=== PATIENT | female | born 1940 | race Caucasian/White ===

== ENCOUNTER 2020-05-22 15:25 | Inpatient (IN) | payer MEDICARE ==
[~2020-05-22] VITALS: Ht 167.6 cm; Wt 110.6 kg
[~2020-05-22 15:25] MED LIST: ALBU3IS INH; ASPI325 PO; Adult Low Dose81 MG PO; Aspir 8181 MG PO; BISA10S PR; CEPH500 PO; DIGO.25 PO; DIGOX250 MCG PO; Elemental Calc600 MG PO; FERR325 PO; FURO40 PO; Ferrous Sulfat325 MG PO; GABA300 PO; HYDACE10B PO; IRON SULFATE; LAVAP17G PO; LOSA50 PO; METF500 PO; METF850 PO; METO25 PO; METO50 PO; OXYACE7.5T PO; POTA10T PO; SENN187 PO
[2020-05-22] MEDS ORDERED: CALCIUM PO (15:54)
[2020-05-22] MEDS ORDERED: AMLO10 PO (15:56)
[2020-05-22 16:06] LABS: Base Excess Venous -2.6 mmol/L; Bicarbonate Venous 21.2 mmol/L (24.0-30.0); PCO2 Venous 58.8 mmHg (38-42); PO2 Venous 60.7 mmHg (38-42); pH Blood Venous 7.24 (7.34-7.37)
[2020-05-22 16:17] LABS: BASOPHILS ABSOLUTE AUTO 0.03 K/mm3 (0.00-0.23); BASOPHILS PERCENT AUTO 0 % (0-2); EOSINOPHILS ABSOLUTE AUTO 0.07 K/mm3 (0.00-0.68); EOSINOPHILS PERCENT AUTO 1 % (0-6); Hematocrit 47.7 % (33.0-51.0); IMMATURE GRAN ABSOLUTE AUTO 0.05 K/mm3 (0.00-0.10); IMMATURE GRAN PERCENT AUTO 1 % (0-1); LYMPHOCYTES ABSOLUTE AUTO 0.84 K/mm3 (0.84-5.20); LYMPHOCYTES PERCENT AUTO 9 % (21-46); MONOCYTES ABSOLUTE AUTO 0.93 K/mm3 (0.16-1.47); MONOCYTES PERCENT AUTO 9 % (4-13); Mean Corpuscular HGB Conc 29.4 g/dL (31.5-36.5); Mean Corpuscular Volume 109 fL (80-100); Mean Platelet Volume 11.5 fL (9.1-12.4); NEUTROPHILS ABSOLUTE AUTO 7.94 K/mm3 (1.96-9.15); NEUTROPHILS PERCENT AUTO 81 % (41-73); Platelet Count 195 K/mm3 (150-400); RDW Coefficient Variation 17.4 % (11.7-14.2); RDW Standard Deviation 71.1 fL (35.1-46.3); Red Blood Cell Count 4.38 M/mm3 (3.80-5.20); White Blood Cell Count 9.86 K/mm3 (4.00-11.30)
[2020-05-22 16:46] LABS: Troponin I <0.015 ng/mL (0.000-0.040)
[2020-05-22 16:51] LABS: Alanine Aminotransfer (ALT/SGP 29 U/L (12-78); Albumin, Blood 3.8 g/dL (3.4-5.0); Alk Phos 104 U/L (50-136); Anion Gap 2 mmol/L (6-16); Aspartate Aminotrans (AST/SGOT 25 U/L (12-37); Bilirubin, Total 0.6 mg/dL (0.1-1.0); Blood Urea Nitrogen 60 mg/dL (8-24); Bun/Creatinine Ratio 32.4 (12.0-20.0); CO2, Blood 26 mmol/L (21-32); Chloride, Blood 113 mmol/L (98-108); Creatinine, Blood 1.85 mg/dL (0.40-1.00); Globulin, Blood 3.8 g/dL (2.2-4.0); Glomerular Filtration Rate 28 (60-); Glucose, Blood 97 mg/dL (70-99); Potassium, Blood 6.3 mmol/L (3.5-5.5); Sodium, Blood 141 mmol/L (136-145); Total Protein, Blood 7.6 g/dL (6.4-8.2)
[2020-05-22 16:53] LABS: Influenza A, PCR Negative (NEGATIVE); Influenza B, PCR Negative (NEGATIVE); Resp Syncytial Virus, PCR Negative (NEGATIVE); SARS-Cov-2 (COVID-19) PCR, MMC Negative (NEGATIVE)
[2020-05-22 17:52] LABS: Source, Urine Catheter
[2020-05-22 18:04] LABS: Appearance, Urine Hazy (Clear); Bilirubin, Urine Neg (Neg); Blood, Urine Neg (Neg); Color, Urine Yellow (P-Yellow); Glucose Qualitative, Urine Neg (Neg); Ketones, Urine Neg (Neg); Leukocyte Esterase, Urine Neg (Neg); Nitrite, Urine Neg (Neg); Protein, Urine Neg (Neg); Urobilinogen, Urine NORM (Normal)
[2020-05-22 18:23] LABS: Amorphous Mod (0-Heavy); Bacteria Few /hpf; Red Blood Cells, Urine 0-2 /hpf (0-2); Squamous Epithelial Cells Few /hpf (Few); White Blood Cells, Urine 0-2 /hpf (0-5)
[2020-05-22 22:20] LABS: Potassium, Blood 5.9 mmol/L (3.5-5.5); Troponin I 0.023 ng/mL (0.000-0.040)
[2020-05-23 04:05] LABS: BASOPHILS ABSOLUTE AUTO 0.03 K/mm3 (0.00-0.23); BASOPHILS PERCENT AUTO 0 % (0-2); EOSINOPHILS ABSOLUTE AUTO 0.12 K/mm3 (0.00-0.68); EOSINOPHILS PERCENT AUTO 2 % (0-6); Hematocrit 44.9 % (33.0-51.0); Hemoglobin 12.9 g/dL (11.5-16.0); IMMATURE GRAN ABSOLUTE AUTO 0.03 K/mm3 (0.00-0.10); IMMATURE GRAN PERCENT AUTO 0 % (0-1); LYMPHOCYTES ABSOLUTE AUTO 1.24 K/mm3 (0.84-5.20); LYMPHOCYTES PERCENT AUTO 17 % (21-46); MONOCYTES ABSOLUTE AUTO 0.88 K/mm3 (0.16-1.47); MONOCYTES PERCENT AUTO 12 % (4-13); Mean Corpuscular HGB 31.8 pg (26.0-34.0); Mean Corpuscular HGB Conc 28.7 g/dL (31.5-36.5); Mean Corpuscular Volume 111 fL (80-100); Mean Platelet Volume 11.4 fL (9.1-12.4); NEUTROPHILS ABSOLUTE AUTO 5.05 K/mm3 (1.96-9.15); NEUTROPHILS PERCENT AUTO 69 % (41-73); Platelet Count 163 K/mm3 (150-400); RDW Coefficient Variation 17.2 % (11.7-14.2); RDW Standard Deviation 71.5 fL (35.1-46.3); Red Blood Cell Count 4.06 M/mm3 (3.80-5.20); White Blood Cell Count 7.35 K/mm3 (4.00-11.30)
[2020-05-23 04:25] LABS: Bun/Creatinine Ratio 34.9 (12.0-20.0); Calcium, Blood 8.7 mg/dL (8.5-10.1); Creatinine, Blood 1.69 mg/dL (0.40-1.00); Potassium, Blood 5.7 mmol/L (3.5-5.5); Troponin I 0.017 ng/mL (0.000-0.040)
--- NOTE | 2020-05-23 05:59 | NUR ---
SHIFT SUMMARY PT RESTED THROUGH REST OF THE NIGHT AFTER ADMIT. ALERT AND ORIENTED - ABLE TO MAKE NEEDS KNOWN. WEARING 7LNC WHEN AWAKE, AND 7L BLEED IN WHEN WEARING BIPAP. SATS MAINTAIN GREATER THAN 90%. TELE READING NSR. IS SBA WITH WALKER TO BATHROOM. HAS ALEXANDER IN PLACE TO ASSIST WITH SKIN HEALING IN LEO AREA. NO C/O PAIN. VSS. CALL LIGHT WITHIN REACH, BED IN LOWEST POSITION. WILL CONTINUE TO MONITOR.
--- NOTE | 2020-05-23 10:20 | NUR ---
CORRECTIONAL AGENCY DIRECTOR WITH PT FOR ECHO, WILL MEDICATE WITH MORNING MEDS WHEN ECHO COMPLETE.
--- NOTE | 2020-05-23 17:38 | NUR ---
SHIFT SUMMARY; ASSUMED CARE AT 0700, A/A/OX4 THROUGHOUT SHIFT. 6L O2 VIA NC, DECREASED SATS TO 88% WITH EXERTION OR EXCESIVE TALKING. ALEXANDER IN PLACE DRAINING CLEAR YELLOW URINE. REPOSITIONS SELF THROUGHT SHIFT WITH ASSISTANCE. TRANSFERRED TO [facility] WITH WALKER AND STANDBY ASSIST. BLE EDEMA, PT STATES IS MUCH WORSE THAN NORMAL. VSS, MEDICATED PER ORDERS THROUGHOUT SHIFT. WILL CONTINUE TO MONITOR AND TREAT UNTIL CHANGE OF SHIFT.
--- NOTE | 2020-05-24 02:01 | NUR ---
PT HAS HAD 2 OCCASIONS WHERE HER OXYGEN WAS MISPLACED ON HER FACE, AND HER O2 SATS DROPPED TO LOW TO MID 80'S. PT SATS RETURNED TO LOW 90'S WITHIN 30 SECONDS TO 1 MINUTE ONCE OXYGEN PLACED BACK IN HER NARES. PT IS CURRENTLY SLEEPING, O2 SATS 91%. CALL LIGHT WITHIN REACH.
[2020-05-24 04:27] LABS: Hemoglobin 12.5 g/dL (11.5-16.0); Mean Corpuscular HGB 32.1 pg (26.0-34.0); Mean Corpuscular HGB Conc 29.1 g/dL (31.5-36.5); Mean Corpuscular Volume 111 fL (80-100); Platelet Count 158 K/mm3 (150-400); RDW Coefficient Variation 17.2 % (11.7-14.2); RDW Standard Deviation 70.6 fL (35.1-46.3); Red Blood Cell Count 3.89 M/mm3 (3.80-5.20); White Blood Cell Count 8.41 K/mm3 (4.00-11.30)
[2020-05-24 04:47] LABS: Bun/Creatinine Ratio 35.5 (12.0-20.0); Calcium, Blood 8.8 mg/dL (8.5-10.1); Creatinine, Blood 1.72 mg/dL (0.40-1.00); Potassium, Blood 5.5 mmol/L (3.5-5.5)
--- NOTE | 2020-05-24 04:56 | NUR ---
PT IS SLEEPING WITH BIPAP IN PLACE, RESPIRATORY EFFORT IMPROVED WITH BIPAP IN PLACE - NO ACCESSORY MUSCLE USE. PT IS CURRENTLY SLEEPING. CALL LIGHT WITHIN REACH.
--- NOTE | 2020-05-24 05:20 | NUR ---
PT REMOVED HER BIPAP, REQUESTING O2 BE PLACED BACK ON. HIGH FLOW O2 8L PLACED BACK ON - SATS 90%.
--- NOTE | 2020-05-24 05:54 | NUR ---
NO ACUTE EVENTS THROUGHOUT THE NIGHT. PT SLEPT FOR APPX 4-5 HOURS TONIGHT. PT TOLERATED BIPAP FOR APPX 3 HOURS TONIGHT. PT CURRENTLY ON 8L HIGH FLOW OXYGEN - CONTINUOUS BIOX ON, SATS 91%. CALL LIGHT WITHIN REACH. URINE OUTPUT WNL WITH ALEXANDER. PT TOLERATED PO FLUIDS WITHOUT DIFFICULTY.
--- NOTE | 2020-05-24 17:41 | NUR ---
SUMMARY PT EATING DINNER AT THIS TIME. HAS BEEN TACHYPNIC AND USING ACCESSORY MUSCLES. PLACED ON BIPAP THIS AM. WHEN PT AWOKE, PT REMOVED BIPAP. ENTERED ROOM TO FIND SATS IN HIGH 70S. PT WAS ALERT. PLACED NC AT 8L HIGH FLOW ON AND SATS RETURNED TO LOW 90S. PT HAS 3+ PITTING EDEMA TO BLE; ELEVATED ON PILLOWS. REC'D BUMEX PER ORDERS. GOOD URINE OUTPUT IN ALEXANDER CATH. PT PASSED FLATUS BUT NO BM THIS SHIFT. SON IN TO VISIT DURING VISITING HOURS. CALL LIGHT IN REACH.
--- NOTE | 2020-05-24 18:07 | NUR ---
PT DECLINED BIPAP AT THIS TIME EATING FRUIT.
--- NOTE | 2020-05-24 19:20 | NUR ---
ASSUMED CARE RECEIVED REPORT BEDSIDE FROM AMY ANTOINE; PT A&O X 3-4; VSS; O2 SATS >93 ON 8L HIGH FLOW; PT TALKING ON PHONE TO FAMILY, SOB NOTED, USING ACCESSORY MUSCLES; CALL LIGHT IN REACH; BED IN LOWEST POSITION.
[2020-05-25 04:19] LABS: Calcium, Blood 8.8 mg/dL (8.5-10.1); Creatinine, Blood 1.54 mg/dL (0.40-1.00); Potassium, Blood 5.2 mmol/L (3.5-5.5)
--- NOTE | 2020-05-25 05:36 | NUR ---
SHIFT SUMMARY PT A&O X 3; PT C/O SOB AT TIMES; VSS; O2 SATS >92 ON 8L HIGH FLOW; BIPAP PLACED LATE IN SHIFT; RT AT BEDSIDE TO TITRATE; ALEXANDER PATENT & DRAINING CLOUDY MYRA URINE; CALL LIGHT IN REACH; BED IN LOWEST POSITION; WILL CONTINUE TO MONITOR CLOSELY UNTIL HAND OFF TO DAY SHIFT RN.
--- NOTE | 2020-05-25 18:42 | NUR ---
SHIFT SUMMARY PT SLEEPING IN ROOM COMFORTABLY AT THIS TIME. NO ACUTE CHANGES IN STATUS T/O SHIFT. SATS 89-92% ON 9L NC. PT LS REMAIN COARSE. IV DIURECTIS INCREASED DURING SHIFT. ALEXANDER CATH DRAINING TO GRAVITY, MYRA IN COLOR AND CLOUDY. PT DENIED ANY CP. NYSTATIN ORDERED FOR YEAST IN FOLDS. PT REPORTS FEELS BETTER. DENIED OTHER NEEDS. CALL LIGHT IN REACH.
[2020-05-26 04:01] LABS: Hematocrit 45.5 % (33.0-51.0); Mean Corpuscular HGB 31.6 pg (26.0-34.0); Mean Corpuscular HGB Conc 28.6 g/dL (31.5-36.5); Mean Corpuscular Volume 111 fL (80-100); Mean Platelet Volume 11.3 fL (9.1-12.4); Platelet Count 131 K/mm3 (150-400); RDW Coefficient Variation 16.5 % (11.7-14.2); RDW Standard Deviation 68.2 fL (35.1-46.3); Red Blood Cell Count 4.11 M/mm3 (3.80-5.20); White Blood Cell Count 8.85 K/mm3 (4.00-11.30)
[2020-05-26 04:18] LABS: Bun/Creatinine Ratio 38.9 (12.0-20.0); Creatinine, Blood 1.44 mg/dL (0.40-1.00); Potassium, Blood 5.3 mmol/L (3.5-5.5)
--- NOTE | 2020-05-26 06:22 | NUR ---
SHIFT SUMMARY PATIENT PLEASENT BUT FORGETFUL THROUGHOUT THE NIGHT. PATIENT NEW SHE WAS AT THE HOSPITAL BUT KEPT FORGETTING WHY SHE WAS HERE. PATIENT WILL FREQUENTLY REMOVE OXYGEN AND NOT BE ABLE TO FIND IT AGAIN TO REPLACE IT. PATIENT'S OS SATURATION WILL DROP INTO THE LOW 80'S WHEN THIS HAPPENS. PATIENT ALWAYS RECOVERS WHEN OXYGEN IS REPLACED. PATIENT GETS ANXIOUS WHEN SHE GETS SHORT OF BREATH AFTER REMOVING HER OXYGEN. PATIENT HAS BEEN MOSTLY ON 11-13L OF OXYGEN THROUGHOUT THE NIGHT BUT IS CURRENTLY ON 9L AND IS TOLERATING IT WELL AT THIS TIME. PATIENT WORE HER BIPAP FOR SEVERAL HOURS LAST NIGHT WHILE ASLEEP BUT SHE DOES NOT TOLERATE IT WELL, PATIENT FREQUENTLY TRIES TO REMOVE HER MASK WHEN BIPAP IS ON STATING, "I WANT IT OFF." PATIENT CURRENTLY APPEARS TO BE ASLEEP AND IS AT 92% ON 9L. WILL CONTINUE TO MONITOR PATIENT AND REPORT TO ONCOMING RN.
--- NOTE | 2020-05-26 12:37 | NUR ---
ASSUMED CARE OF PT THIS AM AFTER RECEIVING REPORT FROM AMY CAMILO. PT ALERT AND ORIENTED X3, RECEIVING HUMIDIFIED OXYGEN VIA HI-SINDY AT 10 L/MIN WITH O2 SATS 88-91%. APPROXIMATELY 1220, PT BREATHING APPEARS MORE LABORED, O2 SATS IN MID-80'S. PT PLACED ON NONREBREATHER, TOLERATED WELL FOR A SHORT PERIORD OF TIME, FOUND WITH HER MASK REMOVED AND O2 SATS AT 78%. BUDDY, RT, ASSISTS WITH PLACING PT ON BIPAP. PT TOLERATLING WELL AT THIS TIME. O2 SATS AT 88-89%.
--- NOTE | 2020-05-26 13:17 | NUR ---
Spoke with Dr Peterson and Elmer Warren prior to visiting with Pt. Dr Peterson reports Pt and family may benefit from discussion regarding goals of care including consideration of hospice. Pt resting in bed upon arrival. RT and bedside RN Andres at bedside. Non rebreather placed with 15 L O2. Pt using accessory muscles. Engaged in therapeutic conversation regarding goals of care. Educated on disease process including trajectory of disease. Discussed hospice as an option. Difficult to assess Pt's understanding and ability to process information due to Pt's significant SOB. Pt tends to focus on frustration of losing her independence and states "I don't want my children to have to move in with me". Pt does not respond further and fidgets with her lunch. Ended visit to allow Pt time to process information. Received verbal permission from Pt to call daughter and discuss conversation that took place. Called and spoke with Pt's daughter Sonia. Provided update and engaged in therapeutic discussion regarding hospice as an option. Gentle education on disease process and the need for caregiver support. Sonia reports plan to visit Pt at 1500 and is agreeable to discuss further when she arrives. Sonia reports no other concerns at this time and expresses appreciation of call. Palliative Care will remain available.
--- NOTE | 2020-05-26 14:01 | NUR ---
PT CONTINUES ON BIPAP, TOLERATING WELL WITH O2 SATS AT 95%. PT RESPIRATIONS APPEAR LESS LABORED. PT RESTING QUIETLY WITH EYES CLOSED, NADN.
--- NOTE | 2020-05-26 15:34 | NUR ---
Received call from Bedside AMY Campos reporting Pt's daughter has arrived. Pt resting in bed upon arrival. Pt's on 10 L O2 via NC. Pt tends to breath through her mouth and NC placed in mouth. Pt constantly moving NC out of her mouth with saturations dropping quickly to 82 to 84%. Engaged in further conversations regarding goals of care. Answered questions and listened to concerns. Educated on hospice philosophy with V/U made by Sonia. Pt appears to struggle with participating on conversation. When assessing Pt's understanding Pt replies "It means I'm going to kick the bucket". Inquired with Pt regarding her thoughts and wishes with Pt appearding to struggle with question and does not respond. Pt appears moderately dyspneic with this RN assisting with appropriate placement of NC throughout the visit. Sonia reports having conversation with other family members and family is in agreement with hospice. Sonia reports wanting Pt to remain at home and avoid hospitalization but will need assistance and support with caregivers. Discussed code status and consideration of completing POLST with Sonia reporting wanting to speak with family further before making a decision. Instructed concerns will be relayed to jatin Warren. Sonia expressess appreciation of visit and reports no other concerns at this time. Spoke with Bedside AYM Campos and discussed case. Discussed consideration of oxygen mask to replace NC for comfort. Spoke with Caremansveta Warren and relayed wishes and concerns. Spoke with Dr Petesron and discussed family wishes. Will place hospice referral. Palliative Care will remain available.
--- NOTE | 2020-05-26 18:49 | NUR ---
SHIFT SUMMARY: PALLIATIVE CARE CONSULT TOOK PLACE TODAY WITH DAUGHTER AT BEDSIDE. AT THIS TIME, WE ARE WAITING FOR PT'S DAUGHTER TO CONSULT WITH SIBLINGS AND COME TO A DECISION RE: POSSIBLE HOSPICE PLACEMENT. PT CONTINUES ON OXYGEN VIA NC AT THIS TIME, RATE OF 10 L/MIN, O2 SATS AT 90%. REPEAT CHEST XRAY COMPLETED THIS AFTERNOON, PENDING RESULTS AT THIS TIME. DIURETIC DOSE WAS INCREASED TODAY, PT TOLERATING WELL THUS FAR. WILL CONTINUE TO MONITOR UNTIL CHANGE OF SHIFT.
[2020-05-27 04:53] LABS: Hematocrit 43.9 % (33.0-51.0); Hemoglobin 12.8 g/dL (11.5-16.0); Mean Corpuscular HGB Conc 29.2 g/dL (31.5-36.5); Mean Corpuscular Volume 110 fL (80-100); Mean Platelet Volume 11.8 fL (9.1-12.4); Platelet Count 120 K/mm3 (150-400); RDW Coefficient Variation 16.4 % (11.7-14.2); RDW Standard Deviation 66.9 fL (35.1-46.3); White Blood Cell Count 8.41 K/mm3 (4.00-11.30)
[2020-05-27 05:04] LABS: Bun/Creatinine Ratio 44.3 (12.0-20.0); Calcium, Blood 9.1 mg/dL (8.5-10.1); Creatinine, Blood 1.4 mg/dL (0.40-1.00); Potassium, Blood 5.3 mmol/L (3.5-5.5)
--- NOTE | 2020-05-27 05:30 | NUR ---
END OF SHIFT SUMMARY PT ALERT OR LETHARGIC DEPENDING ON TIME OF SHIFT. REMAINS IN AFIB WITH STABLE VS. WHEN TOLERATING, PT ON BIPAP 18/9 75% FIO2, PT DOES NOT TOLERATE WELL HOWEVER AND HAS BEEN ON HIGH FLOW NC RANGING FROM 11-13L. SPO2 RANGING FROM 88% - 92%. PT CONTINUES WITH SHALLOW BREATHING AND OCCASIONAL ACCESSORY MUSCLE USE. ALEXANDER REMAINS PATENT AND DRAINING. PT GIVEN COMPLETE BED BATH. HAS BEEN RESTING OFF AND ON. FLAT AFFECT BUT COOPERATIVE. PT PRESENTS SOMBER BUT DOESN'T ELABORATE. WILL CONTINUE TO MONITOR UNTIL SHIFT CHANGE.
--- NOTE | 2020-05-27 16:54 | NUR ---
Received call from Pt's daughter in law Angie. Engaged in therapeutic listening and answered questions. Angie reports her and Pt's son were not aware Pt had significant heart disease. Angie reports just finding out that Pt had not been seeing a PCP in some time. Continued therapeutic listening and discussed goals of care. Angie reports family is in agreement with hospice and plans to visit Pt this weekend. Angie and Pt's son work methods time analyst and live in [place]. Discussed the importance of discussion regarding code status. Continued therapeutic listening. Angie expresses appreciation of conversation and report no other concerns at this time. Pt resting in bed upon arrival. Pt denies pain at this time. Pt states "I'm feeling crudy". Asked to elaborate with Pt refering to her dyspnea. Continued with therapeutic voice and and gentle touch. Called and spoke with Dr Hammond. Dr Hammond reports having conversation with Pt. Pt states she is wanting to get better. Plan is to attempt to improve symptoms. Family would benefit from having further conversations with Pt as needed. Palliative Care will remain available for therapeutic visits.
--- NOTE | 2020-05-27 18:44 | NUR ---
PT SUMMARY: PT REMAINS ON 12L OF O2 VIA HI SINDY NASAL CANNULA ALTERNATING BIPAP AT 70% FIO2 IF TOLERATED. HRR REMAINS AFIB RATE 90'S, BP SYSTOLIC 150'S, AFEBRILE. PT STARTED GETTING AGITATED AFTER LUNCH TIME PT TOLERATED BIPAP AND FELL ASLEEP FOR MORE THAN AN HOUR PT STARTED TAKING BIPAP OFF REDIRECTED TO USE CALL LIGHT TO HELP PT SWITCH IT OFF TO NASAL CANNULA PT WAS NOT ABLE TO CALL TAKES OFF NASAL CANNULA WELL PT DESATS TO LOW 70'S HAS TO USE BIPAP TO RECOVER. PT SOB/ WITH MINIMAL EXERTION ANDHAS TO TAKE DEEP BREATHS WHEN TALKING. CAN TOLERATE EATING DESATS TO 85%. PT STILL CONSIDERING TAKING TREATMENTS UNTIL PT FEEL BETTER, FAMILY IS OKAY FOR PT TO PROCEED TO HOSPICE PROGRAM PER PALLIATIVE CARE NURSE. PER DR TONEY WILL WATCH PT DAY BY DAY FOR NOW ON HOW PT PROGRESS. BUMEX INCREASED TO 4MG BID. PT STILL HAS 2-4+ PITTING EDEMA BUE AND BLE. ORDER RECEIVED FOR SEROQUEL AND HALDOL PRN FOR AGITATION. ONE DOSE GIVEN WITH DINNER. 2 NURSES IN THE ROOM AT THIS TIME ATTEMPTING POWERGLIDE PLACEMENT. WILL REPORT TO ONCOMING SHIFT.
--- NOTE | 2020-05-27 22:46 | NUR ---
ASSUMED CARE OF PATIENT AT APPROXIMATELY 1910 FROM ANA M Benitez RN. PATIENT LETHARGIC AT TIMES; RESPONDS TO VERBAL STIMULUS AT TIMES; BIPAP DEPENDENT; CONFUSED AND PULLING BIPAP OFF A TIMES. PATIENT DENIES PAIN, NUMBNESS, TINGLING, DIZZINESS OR NAUSEA. AFIB ON TELE W/ RATE OF 70-80'S; OXYGEN SATURATION ABOVE 90% ON 12LPM VIA HF NC OR BIPAP FIO2 70%. PG S/L. PATIENT CURRENTLY RESTING IN BED; CALL LIGHT IN REACH; BED IN LOWEST POSISTION; BED ALARM ON; WILL CONTINUE TO MONITOR AND ASSESS UNTIL END OF SHIFT.
[2020-05-28 03:39] LABS: BASOPHILS ABSOLUTE AUTO 0.01 K/mm3 (0.00-0.23); BASOPHILS PERCENT AUTO 0 % (0-2); EOSINOPHILS ABSOLUTE AUTO 0.09 K/mm3 (0.00-0.68); EOSINOPHILS PERCENT AUTO 2 % (0-6); Hematocrit 42.2 % (33.0-51.0); Hemoglobin 12.4 g/dL (11.5-16.0); IMMATURE GRAN ABSOLUTE AUTO 0.03 K/mm3 (0.00-0.10); IMMATURE GRAN PERCENT AUTO 1 % (0-1); LYMPHOCYTES ABSOLUTE AUTO 0.51 K/mm3 (0.84-5.20); LYMPHOCYTES PERCENT AUTO 8 % (21-46); MONOCYTES PERCENT AUTO 12 % (4-13); Mean Corpuscular HGB 31.9 pg (26.0-34.0); Mean Corpuscular HGB Conc 29.4 g/dL (31.5-36.5); Mean Corpuscular Volume 109 fL (80-100); Mean Platelet Volume 11.8 fL (9.1-12.4); NEUTROPHILS ABSOLUTE AUTO 4.74 K/mm3 (1.96-9.15); NEUTROPHILS PERCENT AUTO 78 % (41-73); Platelet Count 108 K/mm3 (150-400); RDW Coefficient Variation 15.8 % (11.7-14.2); RDW Standard Deviation 63.8 fL (35.1-46.3); Red Blood Cell Count 3.89 M/mm3 (3.80-5.20); White Blood Cell Count 6.08 K/mm3 (4.00-11.30)
[2020-05-28 03:52] LABS: Bun/Creatinine Ratio 47.2 (12.0-20.0); Creatinine, Blood 1.44 mg/dL (0.40-1.00); Magnesium, Blood 2.6 mg/dL (1.6-2.4); Potassium, Blood 4.2 mmol/L (3.5-5.5)
--- NOTE | 2020-05-28 05:53 | NUR ---
PATIENT WORE BIPAP FOR MOST OF SHIFT; REMOVED FOR ORAL CARE AND TO DRINK SOME WATER. MENTATION IMPROVED T/O THE SHIFT. PATIENT REMOVED BIPAP ABOUT 0540 AND REPORTS SHE NEEDS A BREAK. 12LPM VIA HIGH FLOW NC PLACED; TOLERATING AT 90-92% O2 SAT. NO OTHER CHANGES TO REPORT. WILL CONTINUE TO MONITOR AND ASSESS UNTIL END OF SHIFT.
--- NOTE | 2020-05-28 10:39 | NUR ---
Pt resting in bed upon arrival. BIPAP just placed. Pt appears mildly anxious. Spoke with AMY Schneider and discussed case. Pt more confused today. Spoke with Dr Hammond and discussed case. Pt has reported to Dr Hammond that she wants to get better. Dr Hammond reports family discussion with Pt regarding goals of care may be beneficial. Will discuss with careteam regarding possibility of allowing a one time short visit for daughter, son, and daughter in law to visit with Pt to discuss further regarding goals of care. Palliative Care will remain available.
--- NOTE | 2020-05-28 10:59 | NUR ---
Late Entry from previous visit. Spoke with Bedside RN Wei and cardiovascular invasive specialist Marcella. Team is agreeable with a one time meeting with Pt, son, daughter, and daughter in law tomorrow to assist with goals of care. Daughter in law Angie will call back with approximate time family can meet tomorrow.
--- NOTE | 2020-05-28 17:33 | NUR ---
PC AMY Daniels received call from Pt's daughter in law. Family will arrive on morning approximately 1030 to have meeting with Pt to discuss goals of care.
--- NOTE | 2020-05-28 18:39 | NUR ---
PT SUMMARY: PT CONFERENCE MEETING SET UP TOMORROW WITH PALLIATIVE CARE NURSE AT 10:30A TO DISCUSS PT'S CONDITION AND CODE STATUS. PT HAS BEEN ON HI-SINDY 13-15L WAS NOT TOLERATING BIPAP KEEPS TAKING IT OFF THEN PT DESATS TO LOW 70% TAKES AWHILE FOR PT TO RECOVER PT STATED SHE COULDNT BREATHE, HAS TO BE REDIRECTED MULTIPLE TIMES TO KEEP MASK ON HELP HER BREATHE, SEROQUEL GIVEN X1 AT DINNER TIME, PT IS NOW RESTING WITH BIPAP ON FIO2 STILL AT 70%. PT DOESN'T SEEM TO UNDERSTAND AND RETAIN INFORMATION ABOUT HER CONDITION, WILL DISCUSS MORE WITH FAMILY TOMORROW. VITALS HRR AFIB 80-100'S, BP SYSTOLIC 130'S, AFEBRILE. ALEXANDER DRAINING VIA GRAVITY HAD ATLEAST 1500MLS URINE OUTPUT FOR THE SHIFT, REPOSITIONED Q2 HRS. WILL REPORT TO ONCOMING SHIFT
--- NOTE | 2020-05-29 07:33 | NUR ---
SHIFT SUMMARY PATIENT PLEASENT AND COOPERATIVE THROUGHOUT THE NIGHT. PATIENT ABLE TO STATE SHE IS AT [facility] BUT UNABLE TO REMEMBER WHY SHE IS HERE. PATIENT REORIENTED NEEDED. PATIENT FORGETFUL AND REMOVES OXYGEN AND BIPAP MASK. PATIENT DOES NOT LIKE TO WEAR THE BIPAP BUT WILL DO IT. PATIENT WORE HER BIPAP UNTIL APPROX 0100. THEN PATIENT HAD A SMALL NOSE BLEED AND BIPAP WAS REMOVED. RESPIRTORY THERAPY NOTIFIED AND STATED IT WAS FINE FOR PATIENT TO BE OFF BIPAP FOR THE TIME BEING. PATIENT PLACED ON 15L VIA HIGH FLOW N/C. PATIENT REMAINED AT 88% OR GREATER ON THE 15L. PATIENT THEN NAPPED ON AND OFF THROUGHOUT THE REST OF THE NIGHT. PATIENT REPORTS SHE JUST DOESN'T FEEL WELL. REPORT GIVEN TO ONCOMING RN.
--- NOTE | 2020-05-29 08:45 | NUR ---
Brief supportive visit this AM. Pt resting in bed upon arrival wearing BIPAP. Assisted Pt with choosing her meals per her request. Pt denies pain at this time. Pt reports feeling difficult to breath with BIPAP. Instructed on BIPAP. Offered therapeutic voice and gentle touch. Plan: Meet with family when they arrive to assist with conversation as needed.
[2020-05-29 09:43] LABS: BASOPHILS ABSOLUTE AUTO 0.02 K/mm3 (0.00-0.23); BASOPHILS PERCENT AUTO 0 % (0-2); EOSINOPHILS ABSOLUTE AUTO 0.13 K/mm3 (0.00-0.68); EOSINOPHILS PERCENT AUTO 2 % (0-6); Hematocrit 39.9 % (33.0-51.0); Hemoglobin 11.9 g/dL (11.5-16.0); IMMATURE GRAN ABSOLUTE AUTO 0.03 K/mm3 (0.00-0.10); IMMATURE GRAN PERCENT AUTO 1 % (0-1); LYMPHOCYTES PERCENT AUTO 8 % (21-46); MONOCYTES ABSOLUTE AUTO 0.63 K/mm3 (0.16-1.47); MONOCYTES PERCENT AUTO 10 % (4-13); Mean Corpuscular HGB 32.1 pg (26.0-34.0); Mean Corpuscular HGB Conc 29.8 g/dL (31.5-36.5); Mean Corpuscular Volume 108 fL (80-100); Mean Platelet Volume 11.7 fL (9.1-12.4); NEUTROPHILS ABSOLUTE AUTO 5.05 K/mm3 (1.96-9.15); NEUTROPHILS PERCENT AUTO 79 % (41-73); Platelet Count 106 K/mm3 (150-400); RDW Coefficient Variation 15.7 % (11.7-14.2); RDW Standard Deviation 62.3 fL (35.1-46.3); Red Blood Cell Count 3.71 M/mm3 (3.80-5.20); White Blood Cell Count 6.36 K/mm3 (4.00-11.30)
[2020-05-29 10:01] LABS: Bun/Creatinine Ratio 54.8 (12.0-20.0); Calcium, Blood 8.9 mg/dL (8.5-10.1); Creatinine, Blood 1.26 mg/dL (0.40-1.00); Potassium, Blood 3.3 mmol/L (3.5-5.5)
--- NOTE | 2020-05-29 11:52 | NUR ---
Pt visit with family at bedside. Son Kishor, daughter Sonia, and daughter in law Angie present during visit. Dr Hammond arrives, provides update and discusses goals of care with Pt and family. Dr Hammond and this RN answers questions and listens to concerns. Maintaning current plan of care, comfort care, hospice, and code status discussed. After lengthy conversation Pt has elected for DNR status and will consider her other options. Family reports being in agreement with comfort care and hospice but will also support Pt's decisions on the matter. Family will continue conversations as needed for goals of care. Pt and family agreeable to introduce some comfort medication to assist with Pt's air hunger. Pt and family express appreciation of visit and report no other concerns at this time. Spoke with Bedside RN Gerald, discussed case and plan. Dr Hammond will place new order and change code status to DNR. Palliative Care will remain available for supportive visits.
--- NOTE | 2020-05-29 16:38 | NUR ---
Spiritual care note: Ashanti was alone in room when I visited. She appears confused. She could not tell me why she is hospitaized. Conversation appeared to make her work harder to breathe. She denied discomfort/concern. She told me about the of her 7 years ago to cancer. She misses him every day. She is very proud of her children and grandkids and seemed to enjoy listing their accomplishments. She is non-shinto. I provided gentle field counsel and affirmation to good effect. [employer] services will remain available.
--- NOTE | 2020-05-29 17:36 | NUR ---
PATIENT BACK AND FORTH BETWEEN BEING ON BIPAP THIS SHIFT AND ON HIGH FLOW NASAL CANNULA THIS SHIFT. PATIENT HYPERTENSIVE AT TIMES AFTER REPOSITIONING IN BED AND AFTER FAMILY CONFERENCE WITH PALLIATIVE CARE AND WITH DR. TONEY. PATIENT CHANGED TO DNR THIS SHIFT, STARTED ROXANOL. PATIENT SHOWED SIGNIFICANT DECREASE IN WORK OF BREATHING ONCE STARTED ON ROXANOL. PATIENT REPOSITIONED Q2 THIS SHIFT, PATIENT ALERT AND ORIENTED TO SELF AND FAMILY AND TO BEING IN THE HOSPITAL, UNABLE TO STATE PARTICULARS OF ADMISSION CIRCUMSTANCES. PATIENT WILL PULL OFF BIPAP AND O2 SATS WILL DROP TO HIGH 70S/LOW 80S. PATIENT ON NASAL CANNULA WHEN NOT ON BIPAP, WILL MAINTAIN 88-93 ON 15 L IF NO ACTIVITY/NO EXTENDED CONVERSATION ATTEMPTED.
--- NOTE | 2020-05-29 19:54 | NUR ---
HIGH BLOOD PRESSURE NURSE PRACTIONER PILI NOTIFIED OF PATIENT'S ELEVATED BLOOD PRESSURE. ORDER RECIEVED.
--- NOTE | 2020-05-30 04:03 | NUR ---
SHIFT SUMMARY PATIENT FORGETFUL THROUGHOUT THE NIGHT. PATIENT FREQUENTLY REMOVES HER OXYGEN AND HER BIPAP AND WILL THEN DROP INTO THE HIGH 70'S. PATIENT'S OXYGENATION WILL RETURN TO 88% OR GREATER WHEN OXYGEN OR BIPAP REPLACED. CONTINUOUS BIOX IN PLACE. PATIENT ENCOURAGED TO WEAR BIPAP MUCH TOLERATED TONIGHT. PATIENT TURNED FREQUENTLY THROUGHOUT THE NIGHT. PATIENT APPEARED TO NAP ON AND OFF LAST NIGHT. PATIENT CURRENTLY ATTEMPTING TO SLEEP WITH BIPAP IN PLACE. REPRT GIVEN TO RICHARD Alvarado RN WHO WILL ASSUME CARE OF PATIENT AT THIS TIME.
[2020-05-30 04:47] LABS: Blood Urea Nitrogen 70 mg/dL (8-24); Bun/Creatinine Ratio 53.4 (12.0-20.0); Calcium, Blood 9.1 mg/dL (8.5-10.1); Chloride, Blood 95 mmol/L (98-108); Creatinine, Blood 1.31 mg/dL (0.40-1.00); Glomerular Filtration Rate 41 (60-); Glucose, Blood 112 mg/dL (70-99); Potassium, Blood 3.3 mmol/L (3.5-5.5); Sodium, Blood 143 mmol/L (136-145)
[2020-05-30 05:02] LABS: Anion Gap Unable to Calculate mmol/L (6-16); CO2, Blood >45 mmol/L (21-32)
--- NOTE | 2020-05-30 06:20 | NUR ---
SHIFT SUMMARY ASSUMED PT CARE AT 0430 FROM AMY CAMILO. PT TURNED Q 2 HRS. PT ENCOURAGED TO WEAR BIPAP. OXYGEN SATURATION MAINTAINED ABOVE 88% ON 15 L OF OXYGEN VIA NC AND 70% FIO2. HR STABLE. PT REPORTS NO CP OR PRESSURE. PT CONFUSED AT TIMES. BED ALARM IN PLACE. WILL CONTINUE TO MONITOR UNTIL REPORT GIVEN TO DAYSHIFT RN.
--- NOTE | 2020-05-30 07:43 | NUR ---
pt laying in bed awake a/ox3, but very forgetful, lungs are clear dim in bases, resp even labored, speaks in broken sentences, currently on 15 liters high flow cannula, no cough noted, hrirr, tele in place running afib per monitor, see strip, 3-4+ edema noted to b/l le, looks to be going down as tops of feet are wrinkled, iv is power glide to andie, site is clear and patent, btx4, abd round soft nontender, velze cath draining clear yellow urine, skin has a pink coccyx, yeast to folds, moves upper ext, two person to turn, bed rest, liset, call light in reach.
--- NOTE | 2020-05-30 10:50 | NUR ---
Clinical Visit: Pt is oriented, pleasant. She states she is fatigued, denies pain, denies shortness of breath. Oriented to date, president, place, self. After symptom review, hospice discussion is reviewed. Pt states, "I guess," to inquiry if she would be interested in hospice services. Encouraged pt to express her concerns. She states, "I guess I don't have much choice, there's nothing else to do..." Pt seems resigned to having hospice services. She states that she doesn't want to in the hospital and there is "nothing else," therefore, she will accept hospice services. Updated Enedelia, care mgr. She will contact the family for next steps. Plan on hospice discharge. Pt complains of anxiety. Consider comfort care or ativan dosage added for comfort until discharge.
--- NOTE | 2020-05-30 13:30 | NUR ---
pt sleeps when left undisturbed, sats go into the mid 80's, finally let us put the bipap on, and is resting. call light in reach.
--- NOTE | 2020-05-30 18:22 | NUR ---
pt has been made comfort care, she has been calm and relaxed all this shift. family came in to see her and help her eat dinner, call light in reach.
--- NOTE | 2020-05-30 19:48 | NUR ---
CARE ASSUMPTION PT ALERT, OPENS EYES TO SOUND. SP02>90% ON BIPAP. UPON CARE ASSUMPTION, PT ATTEMPTED TO TAKE BIPAP OFF, DESATED TO 60'S. FELLOW RN ASSISTED PT IN PUTTING BIPAP BACK ON, SATS WENT UP TO 90'S. PT RESTING COMFORTABLY IN BED, WATCHING TV. DENIES PAIN. CALL LIGHT IN REACH. WILL CONTINUE TO MONITOR.
--- NOTE | 2020-05-31 05:15 | NUR ---
SHIFT SUMMARY NO ACUTE CHANGES THIS SHIFT. PT ALERT, ORIENTED TO SELF, STAFF, FOLLOWING DIRECTIONS. USES CALL LIGHT APPROPRIATELY. SP02>89% ON 15L HUMIDIFIED HIGH SINDY NC MAJORITY OF NIGHT. TWO TIMES DURING NIGHT SP02 MONITOR ALARMED, PT HAD TAKEN OFF NC AND DESATED BRIEFLY. NC REPLACED ON NOSE WITH RESULTING IMPROVED OXYGENATION. PT DECIDED AT APPROX 0445 TO GO BACK ON BIPAP AND SLEEP. PT CURRENTLY SATTING AT 9% ON BIPAP. PT COMFORT CARE STATUS. PT DENIED PAIN. Q2H REPOSITIONING. ALEXANDER CATHETER DRAINING DARK YELLOW URINE TO GRAVITY. PT WAS ABLE TO WATCH THE [employer] GAME AND THEN SLEPT MOST OF THE SHIFT. CALL LIGHT IN REACH. WILL CONTINUE TO MONITOR.
--- NOTE | 2020-05-31 12:33 | NUR ---
COMFORT CARE VISIT/ASSESSMENT AND CASE CONFERENCE WITH PT'S RN, TECHNOLOGY INFUSION SPECIALIST, CM, RT AND . Pt was placed on comfort care yesterday with tentative plan to support and manage pt's s/s, respiratory distress and coordinate dc home with hospice if possible. has given family update this am and encouraged them to come spend time with pt as she is declining in strength and resp status. Plan and strategy for s/s management & tx of air hunger/resp rate and anxity discussed with pt's bedside nurse. Pt denies pain but appears sl uncomfortable lying in bed. She is awake and able to converse with me appropriately. She is dyspnic with Airvo on at 60L. Reviewed 's notes/plan and spoke with ROLDAN. This info was passed on to pt's bedside RN with plan for pt to be moved to MED floor, larger room that would accomodate her family visitors. Pt sipping fluids, water and when I offered requested juice, which I brought to her. Pt became slightly anxious and unable to express her concerns with multiple staff in/out of her room to assess and discuss plans. She was reassured by both me and her bedside RN and updated on plan also in regards to family coming in to visit. has d/c'd bipap, which pt was not tolerating and requested 15L by in for comfort. Plan to visit again today for s/s assessment or family questions if needed. Will visit again tomorrow.
--- NOTE | 2020-05-31 19:19 | NUR ---
NO ACUTE EVENTS THIS SHIFT. PATIENT ORIENTED TO SELF AND FAMILY. PATIENT'S FAMILY AT BEDSIDE THIS SHIFT, NO ADDITIONAL SUPPORT NEEDED. PATIENT PULLED OFF O2 VIA NASAL CANNULA SEVERAL TIMES THIS SHIFT, PATIENT WOULD BECOME PALE AND CRY OUT FOR HELP, CLOSER MONITORING INSTIGATED WHEN FAMILY NOT IN ROOM. PATIENT TOLERATED PO INTAKE WELL THIS SHIFT, INCREASED SECRETIONS NOTED AND MEDICATED PER EMAR. PATIENT MEDICATED FOR AIR HUNGER PER EMAR, IMPROVED COMFORT WITH INCREASED ORDER FOR ROXANOL PER DR. TONEY.
--- NOTE | 2020-05-31 19:22 | NUR ---
REPORT GIVEN TO HARLEY REYES ON MEDICAL.
--- NOTE | 2020-05-31 19:44 | NUR ---
TRANFER TO MEDICAL FLOOR PT TRANSFERRED TO MEDICAL FLOOR RM 360 @1940. FAMILY UPDATED BY NICKOLAS Hudson RN. ALL PT BELONGINGS WITH PT INCLUDING MEDICATIONS AND PAPERWORK. PT TRANSPORTED ON 15L HI FLOW NC. PT ALERT ADN TALKING WITH STAFF DURING TRANSPORT. MASK ON WHILE NOT IN ROOM. HARLEY HORN IN ROOM TO ACCEPT PT POST TRANSFER. HARLEY Carter RECEIVED REPORT FROM NICKOLAS ROMO.
--- NOTE | 2020-06-01 07:33 | NUR ---
BEDSIDE REPORT. PT IS RESTING/SLEEPING. AROUSES TO NAME, NODS YES/NO TO SIMPLE QUESTIONS. STATE NO PAIN/DISCOMFORT @ THIS TIME. STATE DROWSY, BACK TO SLEEP EASILY. HR IRREG APPROX 100 BPM. LUNGS DECREASED T/O, HIFLOW O2 @ 15L, RESP RATE APPROX 28/MIN USING ABD MUSCLES. BT HYPO, ABD SOFT. ALEXANDER CATH PATENT DRNG CL YELLOW. EXTREMITIES WARM, 2+ EDEMA BLE. PT REPOSITIONED FOR COMFORT, DAMP SPONGES FOR ORAL CARE, MOUTH MOISTENED. WILL MX & PROVIDE COMFORT CARE.
--- NOTE | 2020-06-01 10:30 | NUR ---
COMFORT CARE VISIT - Pt sleeping with head dropped forward to extreme. Her RR is 30-32. She did not wake to voice or touch but did stir more when OPTICAL LAB TECHNICIAN and I repositioned and turned her. No family/visitors at bedside currently. Pt had a lot of family in to see her yesterday afternoon/ladarius. Case conferenced with RN re: strategy to maintain comfort with breathing and anxiety. Pt is on 15L O2 via nc. No air hunger or gasping noted. Pt's extremeties edematous, LE alee 3-4+ pitting. Skin warm/dry. Blinds opened enough to let natural light in and call light placed near pts hand with channel set to music before I left.
--- NOTE | 2020-06-01 10:37 | NUR ---
SOCIAL WORK PROFESSOR ATTEMPT TO ASSIST PT TO EAT BF HOWEVER SHE IS TOO WEAK, DROWSY TO SWALLOW. UNABLE TO TAKE ANY SOLID FOOD. SM AMTS WATER w SPONGE GIVEN. ORAL CARE/SX PROVIDED.
--- NOTE | 2020-06-01 10:41 | NUR ---
PALLIATIVE CARE RN VICKIE IN TO SEE PT. RESP RATE APPROX 28-32. STATE PROBABLE AIR HUNGER. PRN ROXANOL 10MG GIVEN. PT CONTINUES VERY WEAK, AROUSES W VERBAL STIM, TOO WEAK, SHORT OF BREATH TO SPEAK, NODS TO INDICATE UNDERSTANDING. WHEN ASKED IF SHE IS COMFORTABLE STATE ONLY "WATER". DMP ORAL SWABS PROVIDED.
--- NOTE | 2020-06-01 13:33 | NUR ---
PT CONTINUES WEAK, LETHARGIC. OPENS EYES ONLY BREIFLY w VERBAL STIM. NO S/S PAIN @ THIS TIME. RR CONTINUES APPROX 28-32 w 15L O2. DAMP SPONGES FOR ORAL CARE.
--- NOTE | 2020-06-01 13:48 | NUR ---
FAMILY @ BEDSIDE, UPDATED/QUESTIONS ANSWERED. PT ABLE TO OPEN EYES & ACKNOWLEDGE THEM HOWEVER VERY WEAK, LETHARGIC, DROWSY. PRN MORPHINE 10MG GIVEN FOR COMFORT/AIR HUNGER.
--- NOTE | 2020-06-01 13:50 | NUR ---
PT'S DAUGHTER NOTE THAT FINGERS HAVE SWOLLEN, REMOVE RINGS & WILL TAKE THEM HOME, ALL FAMILY @ BEDSIDE AGREE.
--- NOTE | 2020-06-01 16:35 | NUR ---
[facility] COMFORT CARE VISIT AND SUPPORTIVE VISIT TO FAMILY. Pt unresponsive to voice or touch. She appears comfortable with shallow & even respirations at this time. s/s of changes to anticipate with dying process reviwed with multiple family members. Listened and encouraged life review and reminiscing together. Discussed what to watch for and report if nonverbal indicators of pain, anxiety, agitation, restlessness noted. Family members repeatedly expressed appreciation for staff and the care Ashanti has received during this admission. Plan for daily visits. Pt appears imminently dying and I do not anticipate the ability to transfer her home with hospice on Tuesday as tentatively planned. Pt's decline in respiratory status started to accelerate yesterday afternoon and Dr updated family. They were able to have a really good visit with her yesterday and share stories, chocolate and important conversations among multiple family members. They are grateful for all of that.
--- NOTE | 2020-06-01 17:15 | NUR ---
PEOPLESOFT BUSINESS ANALYST IN TO REPOSITION, SUPPORT w PILLOWS FOR COMFORT. SPOKE w FAMILY R/T DECLINE IN MENTATION, USE OF MEDICATIONS FOR AIR HUNGER/PAIN/ANXIETY. FAMILY AGREE THAT HIGH LEVEL O2 NO LONGER USEFUL FOR COMFORT, ASK THAT WE TITRATE DOWN & OFF POSSIBLY. REVIEWED w PALLIATIVE CARE RN & DR TONEY WHO AGREE, TITRATING DOWN @ THIS TIME. DR TONEY ROUND ON PT, VISIT w FAMILY.
--- NOTE | 2020-06-01 19:05 | NUR ---
family continue @ bedside, pt does not respond to verbal stim @ this time. resp 28-32 min, shallow, weakening. continue to decrease o2 via hiflo. prn roxanol given for comfort care/air hunger.
--- NOTE | 2020-06-01 23:19 | NUR ---
PT MEDICATED FOR AIR HUNGER W/ROXINOL 10MG PO AT 2246. SHE MOMENTS LATER AT 2250 W/FAMILY AT BEDSIDE AND APPEARED COMFORTABLE AT THE TIME . PASTORAL CARE ALERTED THAT FAMILY WOULD LIKE THEM TO COME IN. STATIONARY ENGINEER, (VICKIE CHRISTIANSON) NURSING TIRE SPOTTER (ASMITA PARHAM) AND MADE AWARE. FAMILY KNOWS TO TAKE ALL BELONGINGS HOME WITH THEM AND MANY HAVE ALREADY GONE HOME W/THEM. THEY SPECIFIED [facility] HOME FOR FURTHER ARRANGEMENTS. FAMILY REMAINS AT PT'S BEDSIDE AT THIS TIME AND DENY NEEDING ANY ADDITIONAL SUPPORT. PASTORAL CARE EN ROUTE.
--- NOTE | 2020-06-01 23:37 | NUR ---
PASTORAL CARE WAS HERE. FAMILY REMAINS AT BEDSIDE.
--- NOTE | 2020-06-01 23:42 | NUR ---
Pastoral care visitation conducted. Family at the bedside reminiscing and sharing. Pastoral presence, condolences and oppurtuntiy to reflect given. Consolatory prayer offered per family request. Family remained present. I will remain available for further PC support.
== END 2020-06-02 01:35 | DRG 291 ==
LOC: ER 15:25 → MEDS 19:38 → PCU 20:10 → MEDS 05-31 19:36
PROVIDERS: Internal Medicine; Physician Assistant; ADMIT Internal Medicine
PROC: 5A09357 Assistance with Respiratory Ventilation, Less than 24 Consecutive Hours, Continuous Positive Airway Pressure (ICD-10-PCS; principal; 2020-05-22)
DX: I13.0 Hypertensive heart and chronic kidney disease with heart failure and stage 1 through stage 4 chronic kidney disease, or unspecified chronic kidney disease (principal); J96.01 Acute respiratory failure with hypoxia; I50.33 Acute on chronic diastolic (congestive) heart failure; N17.9 Acute kidney failure, unspecified; G93.1 Anoxic brain damage, not elsewhere classified; T46.0X4A Poisoning by cardiac-stimulant glycosides and drugs of similar action, undetermined, initial encounter; Z20.828 Contact with and (suspected) exposure to other viral communicable diseases; I25.10 Atherosclerotic heart disease of native coronary artery without angina pectoris; E11.42 Type 2 diabetes mellitus with diabetic polyneuropathy; E87.5 Hyperkalemia; Z79.82 Long term (current) use of aspirin; N18.31 Chronic kidney disease, stage 3a; I48.91 Unspecified atrial fibrillation; I08.0 Rheumatic disorders of both mitral and aortic valves; Z66 Do not resuscitate; Z51.5 Encounter for palliative care; E11.51 Type 2 diabetes mellitus with diabetic peripheral angiopathy without gangrene
CPT/HCPCS: 0241U; 36415; 51702; 71045; 71046; 78580; 80048; 80053; 80162; 81001; 82803; 83735; 83880; 84132; 84484; 85025; 85027; 85379; 93005; 93010; 93306; 93970; 94640; 94660; 94762; 96365-59; 96375-59; 99285-25; A9270; A9270-GY; A9540; C1751; J1120; J1162; J1815; J1940; J3480